=== PATIENT | female | born 2000 | race Hispanic/Latino ===

== ENCOUNTER 2024-09-06 13:08 | Emergency (ER) | payer MEDICAID ==
[~2024-09-06] VITALS: Ht 157.5 cm; Wt 97.5 kg
[2024-09-06 13:47] LABS: BASOPHILS # (AUTO) 0.02 K/uL (0.00-0.20); BASOPHILS % (AUTO) 0.4 % (0.0-5.0); EOSINOPHILS # (AUTO) 0.17 K/uL (0.00-0.70); EOSINOPHILS % (AUTO) 3.3 % (0.0-8.0); HEMATOCRIT 32.9 % (36-48); IMMATURE GRANULOCYTE ABSOLUTE 0.04 K/uL (0-1); LYMPHOCYTES # (AUTO) 1.1 K/uL (1.0-4.8); LYMPHOCYTES % (AUTO) 21.8 % (21.0-51.0); MEAN CORPUSCULAR HEMOGLOBIN 22.3 pg (27.0-33.0); MEAN CORPUSCULAR HGB CONC 30.1 g/dL (32.0-36.0); MEAN CORPUSCULAR VOLUME 74.1 fL (79-99); MONOCYTES # (AUTO) 0.5 K/uL (0.1-1.0); MONOCYTES % (AUTO) 10.4 % (3.0-13.0); NEUTROPHILS # (AUTO) 3.2 K/uL (1.8-7.7); NEUTROPHILS % (AUTO) 63.3 % (40.0-77.0); PLATELET COUNT (AUTO) 255 K/uL (130-400); RED BLOOD CELL COUNT(AUTO) 4.44 MIL/uL (4.00-5.50); RED CELL DISTRIBUTION WIDTH 15.9 % (11.0-15.5); WHITE BLOOD COUNT (AUTO) 5.1 K/uL (4.8-10.8)
[2024-09-06 13:50] VITALS: BP 125/67
[2024-09-06 13:55] LABS: HCG,QUALITATIVE URINE NEGATIVE (NEGATIVE)
[2024-09-06 13:56] LABS: BILIRUBIN,URINE NEGATIVE (NEGATIVE); CREATININE 0.6 mg/dL (0.5-1.0); GLUCOSE, URINE (UA) NEGATIVE (NEGATIVE); KETONES,URINE NEGATIVE (NEGATIVE); LEUKOCYTE ESTERASE ,URINE 25 Leu/uL (NEGATIVE); NITRATE,URINE NEGATIVE (NEGATIVE); OCCULT BLOOD,URINE LARGE (NEGATIVE); POTASSIUM 3.5 mmol/L (3.5-5.1); PROTEIN,URINE 70 mg/dL (NEGATIVE); UROBILINOGEN,URINE 3 mg/dL (0.2-1.0)
[2024-09-06 14:00] LABS: ADD UA MICROSCOPIC YES; APPEARANCE,URINE CLOUDY (CLEAR)
[2024-09-06 14:05] LABS: COLOR,URINE LIGHT-BROWN (YELLOW)
[2024-09-06 14:12] LABS: BACTERIA,URINE FEW /HPF (None Seen); MUCUS,URINE FEW LPF (None Seen); RBC,URINE TNTC /HPF (0-1); SQUAMOUS EPITHELIAL CELL,UR MANY /HPF (0-2)
[2024-09-06] MEDS ORDERED: ONDA-243 PO (14:37)
[2024-09-06] MEDS ORDERED: FERR28CA PO (14:37)
--- NOTE | 2024-09-06 14:38 | ERN ---
General Chief Complaint: Vaginal Problems/Bleeding Stated Complaint: VAGINAL BLEEDING. DIZZINESS. Time Seen by MD: 13:10 History of Present Illness Initial Comments 24-year-old female who presents for some nausea, generalized abdominal pain and loose stools for two days. She felt a bit lightheaded earlier today prompting her to come to the ER. She had no vomiting. She describes generalized abdomi nal cramping, there is no tenderness. No fever. No sore throat. She had a loose stool yesterday and the day before. She ate some chicken prior to all these symptoms and was worried that this was causing them. She also reports that she recently got a Depo shot about a week ago for control, since then she has had a little bit of spotting no cramping. She also wanted to make sure that she was not anemic. Medical history: None currently, she was preeclamptic and diabetic due to the recent , she delivered two months ago Surgical history: C-sections Allergies: Coded Allergies: amoxicillin (Unverified Allergy, Severe, 09/06/24) HIVES, SWELLING clavulanic acid (Unverified Allergy, Severe, 09/06/24) HIVES, SWELLING Past Medical History Past Medical History: Other Medical History Other: PRE ECLAMPSIA, GESTATIONAL DIABETES Past Surgical History: ROS Dictation CONSTITUTIONAL: Weakness dizziness HEAD/FACE: No signs of trauma. EENT: No eye pain, no blurred vision, no tearing, no double vision, no ear pain, no ear discharge, no nose pain, no nasal congestion, no throat pain, no throat swelling, no mouth pain. RESPIRATORY: No cough, no orthopnea, no SOB, no stridor, no wheezing. CARDIOVASCULAR: No chest pain, no edema, no palpitations, no syncope. GASTROINTESTINAL/ABDOMINAL: Nausea and loose stool GENITOURINARY: No abnormal discharge, no dysuria, no frequent urination, no hematuria. No complaints of pain in the genitals. MUSCULOSKELETAL: No back pain, no gout, no joint pain, no joint swelling, no muscle pain, no muscle stiffness, no neck pain. INTEGUMENTARY: No change in color, no change in hair/nails, no dryness, no lesion, no lumps, no rash. NEUROLOGICAL/PSYCH: No anxiety, not depressed, no emotional problem, no headache, no numbness, no pre-existing deficit, no history of seizures, no tremors, no weakness. HEMATOLOGIC/LYMPHATIC: Not anemic, no history of blood clots, no apparent bleeding, no bruising, glands not swollen. All Systems Negative, Except as Noted. Physical Exam Physical Exam Dictation VITAL SIGNS: Reviewed. GENERAL APPEARANCE: Alert, oriented x3, no acute distress, obese. HEAD AND FACE: Non-traumatic. EYES: PERRL, pink conjunctivas, eyelid no trauma, anterior chamber clear. EARS: Pinnas intact and no signs of trauma or erythema. Ear canals clear and no discharge. TMs no erythema. NOSE: No discharge, no bleeding. OROPHARYNX: Mouth normal, teeth no caries, tongue pink. Pharynx clear, no erythema. Tonsils no exudates, no abscesses noted. Mucous membrane moist. NECK: Supple, non-tender, no thyromegaly, no masses, no JVD, no bruits. BREAST: Deferred. CHEST: No tenderness, no crepitus, no paradoxical movement, no retractions. LUNGS: Clear, well-ventilated, symmetric, no rales, no wheezing, no rhonchi, no stridor, good breath sounds bilaterally. HEART: Regular rate, regular rhythm, no murmur, no gallops. VASCULAR: No peripheral edema. ABDOMEN: Soft, positive bowel sounds, nondistended, no guarding, nontender, no rebound, no masses no hepatomegaly, no splenomegaly, no Mendez's sign, no hernias. RECTAL: Deferred. GENITAL: Deferred. NEUROLOGICAL: Normal speech, gross motor function intact, gross sensory function intact. MUSCULOSKELETAL: Neck nontender, full range of motion, back nontender, full range of motion. EXTREMITIES: Nontender, full range of motion. SKIN: Color pink, dry, no turgor, no rash, no lacerations, no abrasions, no contusions. LYMPHATICS: Deferred. Results Laboratory and Microbiology Lab and Micro Result Laboratory Tests Test 09/06/24 13:35 White Blood Count 5.1 K/uL (4.8-10.8) Red Blood Count 4.44 MIL/uL (4.00-5.50) Hemoglobin 9.9 g/dL (12.0-16.0) L Hematocrit 32.9 % (36-48) L Mean Corpuscular Volume 74.1 fL (79-99) L Mean Corpuscular Hemoglobin 22.3 pg (27.0-33.0) L Mean Corpuscular Hemoglobin Concent 30.1 g/dL (32.0-36.0) L Red Cell Distribution Width 15.9 % (11.0-15.5) H Platelet Count 255 K/uL (130-400) Mean Platelet Volume 10.9 fL (7.5-10.5) H Immature Granulocyte % (Auto) 0.8 % (0-1) Neutrophils (%) (Auto) 63.3 % (40.0-77.0) Lymphocytes (%) (Auto) 21.8 % (21.0-51.0) Monocytes (%) (Auto) 10.4 % (3.0-13.0) Eosinophils (%) (Auto) 3.3 % (0.0-8.0) Basophils (%) (Auto) 0.4 % (0.0-5.0) Neutrophils # (Auto) 3.2 K/uL (1.8-7.7) Lymphocytes # (Auto) 1.1 K/uL (1.0-4.8) Monocytes # (Auto) 0.5 K/uL (0.1-1.0) Eosinophils # (Auto) 0.17 K/uL (0.00-0.70) Basophils # (Auto) 0.02 K/uL (0.00-0.20) Absolute Immature Granulocyte (auto 0.04 K/uL (0-1) Nucleated Red Blood Cells 0.0 % (0.0-0.19) Red Blood Cell Morphology See comments Urine Color LIGHT-BROWN (YELLOW) Urine Appearance CLOUDY (CLEAR) H Urine pH 6.0 (5.0-8.0) Urine Specific [place] 1.032 (1.001-1.031) Urine Protein 70 mg/dL (NEGATIVE) H Urine Glucose (UA) NEGATIVE mg/dL (NEGATIVE) Urine Ketones NEGATIVE mg/dL (NEGATIVE) Urine Occult Blood LARGE (NEGATIVE) H Urine Nitrate NEGATIVE (NEGATIVE) Urine Bilirubin NEGATIVE mg/dL (NEGATIVE) Urine Urobilinogen 3 mg/dL (0.2-1.0) H Urine Leukocyte Esterase 25 Raquel/uL (NEGATIVE) H Urine RBC TNTC /HPF (0-1) H Urine WBC 11-25 /HPF (0-1) H Urine Squamous Epithelial Cells MANY /HPF (0-2) Urine Bacteria FEW /HPF (None Seen) Urine HCG, Qualitative NEGATIVE (NEGATIVE) Sodium Level 137 mmol/L (136-145) Potassium Level 3.5 mmol/L (3.5-5.1) Chloride Level 104 mmol/L (101-111) Carbon Dioxide Level 26 mmol/L (21-32) Blood Urea Nitrogen 11 mg/dL (7-18) Creatinine 0.6 mg/dL (0.5-1.0) Glomerular Filtration Rate Calc 129 mL/min (>90) Random Glucose 98 mg/dL (70-105) Total Calcium 8.5 mg/dL (8.5-10.1) MDM CC: Nausea and weakness Historian: Patient Comorbidities: Obesity Differential diagnosis: , gastroenteritis, anemia, metabolic derangement, other. Vital signs: Stable remained stable CBC: Normocytic anemia hemoglobin 9.9. EKG: NSR, rate of 80 normal axis good R-wave progression intervals are stable. No STEMI. Interpreted by me BMP: Normal Urinalysis: There is some occult blood otherwise unremarkable. We will discharge with Zofran. No life threats at this time. ED Course Orders Procedure Category Date Status Time Cbc With Differential LAB 09/06/24 Complete 13:15 Basic Metabolic Panel LAB 09/06/24 Complete 13:15 Urinalysis Profile LAB 09/06/24 Complete 13:15 ,Urine Test LAB 09/06/24 Complete 13:15 12 Lead Ekg Tracing- EKG 09/06/24 Logged Technical 13:15 Type And Screen BBK 09/06/24 In Process 14:04 Culture Urine SAMMI 09/06/24 In Process 14:14 Vital Signs Date Time Temp Pulse Resp B/P (MAP) Pulse Ox O2 Delivery O2 Flow Rate FiO2 09/06/24 13:10 98.6 92 16 139/78 100 Room Air 0 DX & DISP Disposition: Discharge Departure Impression: Primary Impression: Nausea Additional Impressions: Microcytic anemia, Dehydration, mild Condition: Stable Scripts Ondansetron (Ondansetron Odt) 4 Mg Tab.rapdis 1 TAB PO Q6HPRN PRN for nausea/vomiting for 3 Days, #9 TAB 0 Refills Prov: ARIELLE TELLEZ DO 09/06/24 Ferrous Bis-Glycinate Chelate (Iron Bisglycinate) 28 Mg Iron Capsule 28 MG PO DAILY, #30 CAP Prov: ARIELLE TELLEZ DO 09/06/24 Additional Instructions: Your symptoms may be due to a viral gastroenteritis. This is usually caused by bad food or a virus and will clear on its own. Your lab work does show mild anemia (low hemoglobin, 9.9). I have prescribed iron supplementation. Take once per day. You will need to follow up with your primary doctor in one month for re-evaluation. The rest of your lab work is unremarkable. Your EKG is stable. Drink plenty of liquids. I have prescribed ondansetron dissolvable tabs. You can take this up to 3 times a day to prevent vomiting. Please follow up with her primary doctor. Referrals: SELF,REFERRAL (PCP) ARIELLE TELLEZ DO Sep 06, 2024 14:38
[2024-09-06 15:11] VITALS: PULSE 85; RESP 16; TEMP 97.8; O2SAT 100
--- NOTE | 2024-09-06 17:57 | EKG ---
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
== END 2024-09-06 15:12 | disposition home or self-care (01) ==
LOC: EDH 13:08
DX: D50.9 Iron deficiency anemia, unspecified (principal); E86.0 Dehydration; E11.9 Type 2 diabetes mellitus without complications; E66.9 Obesity, unspecified; Z88.0 Allergy status to penicillin
CPT/HCPCS: 36415; 80048; 81001; 81025; 85025; 86850; 86870; 86900; 86901; 87086; 93005; 99284